=== PATIENT | female | born 1995 | race Caucasian/White ===

== ENCOUNTER → 2023-05-23 16:05 | Outpatient (CLI) | payer OTHER, MEDICAID, SELFPAY ==
[2023-05-23 18:05] LABS: HCG Quantitative /Beta subunit 34.2 mIU/mL
== END ==
PROVIDERS: PCP Family Medicine; Referring Provider Obstetrics & Gynecology; Visit Provider Obstetrics & Gynecology
DX: N91.2 Amenorrhea, unspecified (principal)
CPT/HCPCS: 36415; 84702

== ENCOUNTER → 2023-05-25 07:31 | Outpatient (CLI) | payer OTHER, MEDICAID, SELFPAY ==
[2023-05-25 08:44] LABS: HCG Quantitative /Beta subunit 90.3 mIU/mL
== END ==
PROVIDERS: PCP Family Medicine; Referring Provider Obstetrics & Gynecology; Visit Provider Obstetrics & Gynecology
DX: N91.2 Amenorrhea, unspecified (principal)
CPT/HCPCS: 36415; 84702

== ENCOUNTER → 2023-06-07 12:58 | Outpatient (CLI) | payer OTHER, MEDICAID, SELFPAY ==
[2023-06-07 14:53] LABS: HCG Quantitative /Beta subunit 22081 mIU/mL
== END ==
PROVIDERS: PCP Family Medicine; Referring Provider Obstetrics & Gynecology; Visit Provider Obstetrics & Gynecology
DX: N91.2 Amenorrhea, unspecified (principal)
CPT/HCPCS: 36415; 84702

== ENCOUNTER → 2023-06-20 15:03 | Outpatient (CLI) | payer OTHER, MEDICAID, SELFPAY ==
--- NOTE | 2023-06-20 | DI.US.S_ITS ---
PROCEDURE: US OB <= 14 WEEKS FETUS INDICATIONS: VIABILITY OUTSIDE/PRIOR DATING DATA: Last menstrual period (LMP): 04/30/2023. LMP-based estimated date of delivery (NITIN): 02/04/2024. First dating scan (date and location): 06/20/2023. Estimated date of delivery (NITIN) from first dating scan: 02/02/2024. The calculations are made using the working NITIN of 02/04/2024. TECHNIQUE: Real-time scanning was performed of the fetus and maternal pelvic organs, with image documentation. Endovaginal scanning was also performed to better visualize the fetus and maternal ovaries. COMPARISON: None. FINDINGS: Embryo: Calvary-rump length measures 1.4 cm, 7 weeks 4 days Heart rate: There is positive cardiac activity. No heart rate recorded period Maternal organs: Ovaries demonstrate probable right corpus luteum.. IMPRESSION: Living early 1st trimester intrauterine with crown-rump length and heartbeat measuring 7 weeks 4 days by crown-rump length. There is positive cardiac activity. The actual heart rate was not recorded. We strive to produce accurate, complete, and clear reports of imaging services. To assist us in improving patient care, this report was composed using standard report templates and voice recognition software. Therefore, it may contain abnormal punctuation, insertions and/or omissions. Occasional wrong-word or sound-alike substitutions may occur. Though we review the report and make efforts to correct it, we do recommend that the report be read carefully in proper context to recognize any text inaccuracies. Dictated by: Adilson Lantigua M.D. on 06/20/2023 at 17:12 Approved by: Adilson Lantigua M.D. on 06/20/2023 at 17:14
== END ==
PROVIDERS: PCP Family Medicine; Referring Provider Obstetrics & Gynecology; Visit Provider Obstetrics & Gynecology
DX: O46.91 Antepartum hemorrhage, unspecified, first trimester (principal); Z3A.01 Less than 8 weeks gestation of pregnancy
CPT/HCPCS: 76801; 76817

== ENCOUNTER → 2023-07-21 13:13 | Outpatient (CLI) | payer OTHER, MEDICAID, SELFPAY ==
[2023-07-21 18:17] LABS: Urine N gonorrhoeae NOT DETECTED
[2023-07-21 18:45] LABS: Urine Chlamydia NOT DETECTED
== END ==
PROVIDERS: PCP Family Medicine; Visit Provider Specialist
DX: Z34.81 Encounter for supervision of other normal pregnancy, first trimester (principal); Z3A.11 11 weeks gestation of pregnancy
CPT/HCPCS: 87086; 87491; 87591

== ENCOUNTER → 2023-07-24 08:52 | Outpatient (CLI) | payer OTHER, MEDICAID, SELFPAY ==
[2023-07-24 09:42] LABS: Specimen Label NATERA
[2023-07-24 10:26] LABS: Add Manual Diff / Slide Review NO; Basophils Absolute Auto 0 /uL (0-100); Basophils Percent Auto 0.2 % (0-2); Eosinophils Absolute Auto 100 /uL (0-450); Hematocrit 38.8 % (36-46); Hemoglobin 13.4 g/dL (12.0-16.0); Lymphocytes Absolute Auto 1700 /uL (1100-4500); Lymphocytes Percent Auto 26.1 % (25-40); Mean Corpuscular HGB Conc 34.4 % (30-36); Mean Corpuscular Hemoglobin 29.1 PG (26-34); Mean Corpuscular Volume 84.7 fL (80-100); Monocytes Absolute Auto 400 /uL (0-900); Monocytes Percent Auto 6.9 % (3-14); Neutrophils Absolute Auto 4200 /uL (1500-7000); Neutrophils Percent Auto 65.8 % (50-75); Platelet Count 199 X10^3/uL (150-400); Red Blood Cell Count 4.58 X10^6/uL (4.0-5.2); Red Cell Distribution Width 13.5 % (11.6-14.8); White Blood Cell Count 6.4 X10^3/uL (4.5-11.0)
[2023-07-24 16:37] LABS: Hepatitis B Surface Antigen NEGATIVE s/c (NEGATIVE); Rubella Antibody IgG 50.5 IU/mL (>15)
[2023-07-24 16:56] LABS: HIV 1 & 2 Ab/Ag 4th Gen Combo NEGATIVE (NEGATIVE); Hep C Virus Ab w/Reflex Quant NEGATIVE s/c (NEGATIVE)
[2023-07-25 06:08] LABS: RPR Screen Non Reactive (Non Reactive)
[2023-07-25 10:44] LABS: Varicella IgG Antibody 1629 index (Immune >165)
== END ==
PROVIDERS: PCP Family Medicine; Referring Provider Obstetrics & Gynecology; Visit Provider Obstetrics & Gynecology
DX: Z34.81 Encounter for supervision of other normal pregnancy, first trimester (principal)
CPT/HCPCS: 36415; 80055; 86787; 86803; 86850; 86900; 86901; 87389

== ENCOUNTER → 2023-08-22 08:13 | Outpatient (CLI) | payer OTHER, MEDICAID, SELFPAY ==
[2023-08-24 22:29] LABS: Gest Age on Col Date 16.3 weeks (.); Insulin Dep Diabetes No (.); OSBR Risk 1IN 10000 (.); Results Report (.); Test Results *Screen Negative* (.)
[2023-08-25 09:37] LABS: PDF SCANNED
== END ==
PROVIDERS: PCP Family Medicine; Referring Provider Obstetrics & Gynecology; Visit Provider Obstetrics & Gynecology
DX: Z34.82 Encounter for supervision of other normal pregnancy, second trimester (principal); Z3A.16 16 weeks gestation of pregnancy
CPT/HCPCS: 36415; 82105

== ENCOUNTER → 2023-09-01 | Outpatient (CLI) | payer OTHER, MEDICAID, SELFPAY | PROVIDERS: PCP Family Medicine; Referring Provider Family Medicine; Visit Provider Family Medicine | DX: Z23 Encounter for immunization (principal) | CPT/HCPCS: 90471; 90686 ==

== ENCOUNTER → 2023-09-26 14:59 | Outpatient (CLI) | payer OTHER, MEDICAID, SELFPAY ==
--- NOTE | 2023-09-26 15:00 | DI.US.S_ITS ---
PROCEDURE: US OB >= 14 WEEKS FETUS INDICATIONS: ANATOMY OUTSIDE/PRIOR DATING DATA: Last menstrual period (LMP): 04/30/2023. LMP-based estimated date of delivery (NITIN): 02/04/2024. First dating scan (date and location): 06/20/2023. Estimated date of delivery (NITIN) from first dating scan: 02/02/2024. The calculations are made using the working NITIN of 02/04/2024. TECHNIQUE: Real-time scanning was performed of the fetus, with image documentation and biometric measurements. Endovaginal scanning: Not performed COMPARISON: None. FINDINGS: General: A single living intrauterine gestation is present. Presentation: Variable. Placenta: Placental position is anterior and to the right , without previa. Amniotic fluid index: 13.3 cm, normal range is 5-24 cm. Single deepest vertical pocket is 4.2 cm. heart rate: 132 beats per minute. Maternal cervical canal: 4.1 cm long. Normal lower limit is 2.5 cm. biometrics: Biparietal diameter: 5.1 cm, 21 weeks 2 days Head circumference: 19.2 cm, 21 weeks 3 days Abdominal circumference: 17.3 cm, 22 weeks 2 days Femur length: 3.9 cm, 22 weeks 3 days Clinically estimated gestational age: 21 weeks 2 days Composite gestational age from present scan: 21 weeks 6 days Estimated weight and percentile: 482 g, 88th percentile Anatomic survey: Neuro: Ventricles are non-dilated at less than 10 mm. Cisterna magna is normal at 3-11 mm. Cerebellum is normal in size and morphology. Nuchal skin fold: Normal at less than 6 mm between 14-21 weeks gestational age. Face: Nose and lips, facial profile are normal. Spine: No evidence for spina bifida. Heart: 4-chambered heart is present, with normal ventricular outflow tracts. Diaphragm: Diaphragm is intact. Stomach: Left-sided stomach is present. Kidneys: No hydronephrosis. Normal is less than 5 mm in 2nd trimester, less than 7 mm in 3rd trimester. Cord: 3-vessel cord. Probable marginal cord insertion visualized in transverse plane only period cord is inserting 1.6 cm from the right placental edge period Bladder: Normal in size. Extremities: All 4 extremities identified. IMPRESSION: 1. Living 2nd trimester intrauterine with no sonographic evidence of complications. Current ultrasound age is concurrent with clinical age, 4 days greater than clinical age. 2. Probable marginal insertion of the cord on the placenta, approximately 1.6 cm from the right placental edge. 3. Otherwise unremarkable 2nd trimester anatomy scan. We strive to produce accurate, complete, and clear reports of imaging services. To assist us in improving patient care, this report was composed using standard report templates and voice recognition software. Therefore, it may contain abnormal punctuation, insertions and/or omissions. Occasional wrong-word or sound-alike substitutions may occur. Though we review the report and make efforts to correct it, we do recommend that the report be read carefully in proper context to recognize any text inaccuracies. Dictated by: Adilson Lantigua M.D. on 09/27/2023 at 12:54 Approved by: Adilson Lantigua M.D. on 09/27/2023 at 13:01
== END ==
PROVIDERS: PCP Family Medicine; Referring Provider Obstetrics & Gynecology; Visit Provider Obstetrics & Gynecology
DX: Z34.82 Encounter for supervision of other normal pregnancy, second trimester (principal); Z3A.20 20 weeks gestation of pregnancy
CPT/HCPCS: 76811

== ENCOUNTER → 2023-11-02 11:49 | Outpatient (CLI) | payer OTHER, MEDICAID, SELFPAY ==
[2023-11-02 13:47] LABS: Hematocrit 33.4 % (36-46); Hemoglobin 11.5 g/dL (12.0-16.0)
[2023-11-02 14:22] LABS: GTT (PREG) 1 Hour PP 50gm Dose 128 mg/dL (76-139)
== END ==
PROVIDERS: PCP Family Medicine; Referring Provider Obstetrics & Gynecology; Visit Provider Obstetrics & Gynecology
DX: Z34.82 Encounter for supervision of other normal pregnancy, second trimester (principal); Z3A.26 26 weeks gestation of pregnancy
CPT/HCPCS: 36415; 82950; 85014; 85018; 86850

== ENCOUNTER → 2024-01-10 08:43 | Outpatient (CLI) | payer OTHER, MEDICAID, SELFPAY ==
[2024-01-10 09:35] LABS: Creatinine Urine Random 91.4 mg/dL; Protein (Total) Urine Random 5 mg/dL (0-12); Protein Creatinine Ratio Urine 0.05 GRAM/24H
== END ==
PROVIDERS: PCP Family Medicine; Visit Provider Obstetrics & Gynecology
DX: O16.3 Unspecified maternal hypertension, third trimester (principal); Z3A.36 36 weeks gestation of pregnancy
CPT/HCPCS: 82570; 84156

== ENCOUNTER 2024-01-10 08:54 | Outpatient (CLI) | payer OTHER, MEDICAID, SELFPAY ==
[2024-01-10 09:33] LABS: Add Manual Diff / Slide Review NO; Basophils Absolute Auto 0 /uL (0-100); Basophils Percent Auto 0.3 % (0-2); Eosinophils Absolute Auto 100 /uL (0-450); Eosinophils Percent Auto 1.1 % (2-4); Hematocrit 37.8 % (36-46); Hemoglobin 12.6 g/dL (12.0-16.0); Lymphocytes Absolute Auto 2300 /uL (1100-4500); Lymphocytes Percent Auto 20.2 % (25-40); Mean Corpuscular HGB Conc 33.4 % (30-36); Mean Corpuscular Hemoglobin 26.8 PG (26-34); Mean Corpuscular Volume 80.3 fL (80-100); Monocytes Absolute Auto 900 /uL (0-900); Monocytes Percent Auto 7.7 % (3-14); Neutrophils Absolute Auto 7900 /uL (1500-7000); Neutrophils Percent Auto 70.7 % (50-75); Platelet Count 219 X10^3/uL (150-400); Red Cell Distribution Width 13.7 % (11.6-14.8); White Blood Cell Count 11.2 X10^3/uL (4.5-11.0)
[2024-01-10 09:40] LABS: Aspartate Aminotransferase 24 IU/L (14-36); BUN Creatinine Ratio 14.3 (6-22); Blood Urea Nitrogen 7 mg/dL (7-17); Estimated Glomerular Filt Rate > 60 mL/min (>60); Uric Acid 5.2 mg/dL (2.5-6.2)
== END 2024-01-10 10:03 | disposition home or self-care (01) ==
LOC: LABOR 09:40 → OB 01-16 09:45
PROVIDERS: PCP Family Medicine; Referring Provider Obstetrics & Gynecology; Visit Provider Obstetrics & Gynecology
DX: O13.3 Gestational [pregnancy-induced] hypertension without significant proteinuria, third trimester (principal); Z3A.36 36 weeks gestation of pregnancy; O16.3 Unspecified maternal hypertension, third trimester
CPT/HCPCS: 59025; 82570; 84156; 84450; 84550; 85025; G0378; G0379

== ENCOUNTER → 2024-01-18 08:17 | Outpatient (CLI) | payer OTHER, MEDICAID, SELFPAY ==
[2024-01-19 10:13] LABS: Strep Grp B PCR NEG for Grp B Strep
== END ==
PROVIDERS: PCP Family Medicine; Visit Provider Obstetrics & Gynecology
DX: Z34.83 Encounter for supervision of other normal pregnancy, third trimester (principal); Z3A.36 36 weeks gestation of pregnancy
CPT/HCPCS: 87653

== ENCOUNTER 2024-01-18 12:55 | Outpatient (CLI) | payer OTHER, MEDICAID, SELFPAY ==
[2024-01-18 13:31] LABS: Add Manual Diff / Slide Review NO; Basophils Absolute Auto 100 /uL (0-100); Basophils Percent Auto 0.7 % (0-2); Eosinophils Absolute Auto 200 /uL (0-450); Eosinophils Percent Auto 1.9 % (2-4); Hemoglobin 12.7 g/dL (12.0-16.0); Lymphocytes Absolute Auto 2000 /uL (1100-4500); Lymphocytes Percent Auto 19.1 % (25-40); Mean Corpuscular HGB Conc 34.5 % (30-36); Mean Corpuscular Hemoglobin 28.1 PG (26-34); Mean Corpuscular Volume 81.5 fL (80-100); Monocytes Absolute Auto 900 /uL (0-900); Neutrophils Absolute Auto 7400 /uL (1500-7000); Neutrophils Percent Auto 70.3 % (50-75); Platelet Count 201 X10^3/uL (150-400); Red Blood Cell Count 4.54 X10^6/uL (4.0-5.2); Red Cell Distribution Width 14.4 % (11.6-14.8); White Blood Cell Count 10.6 X10^3/uL (4.5-11.0)
[2024-01-18 13:48] LABS: Aspartate Aminotransferase 29 IU/L (14-36); BUN Creatinine Ratio 15.3 (6-22); Blood Urea Nitrogen 9 mg/dL (7-17); Estimated Glomerular Filt Rate > 60 mL/min (>60); Uric Acid 5.5 mg/dL (2.5-6.2)
[2024-01-18 17:36] LABS: Creatinine Urine Random 36.6 mg/dL; Protein (Total) Urine Random 11 mg/dL (0-12)
== END 2024-01-18 14:22 | disposition home or self-care (01) ==
LOC: LABOR 13:09 → OB 01-19 12:05
PROVIDERS: PCP Family Medicine; Referring Provider Obstetrics & Gynecology; Visit Provider Obstetrics & Gynecology
DX: O13.3 Gestational [pregnancy-induced] hypertension without significant proteinuria, third trimester (principal); Z3A.37 37 weeks gestation of pregnancy; Z34.83 Encounter for supervision of other normal pregnancy, third trimester; Z3A.36 36 weeks gestation of pregnancy
CPT/HCPCS: 59025; 82570; 84156; 84450; 84550; 85025; 87653; G0378; G0379

== ENCOUNTER 2024-01-21 21:28 | Outpatient (CLI) | payer OTHER, MEDICAID, SELFPAY | END 2024-01-21 22:08 | disposition home or self-care (01) | LOC: LABOR 21:35 → OB 01-22 08:08 | PROVIDERS: PCP Family Medicine; Referring Provider Obstetrics & Gynecology; Visit Provider Obstetrics & Gynecology | DX: O26.893 Other specified pregnancy related conditions, third trimester (principal); R10.2 Pelvic and perineal pain; Z3A.38 38 weeks gestation of pregnancy | CPT/HCPCS: 59025; G0378; G0379 ==

== ENCOUNTER 2024-01-23 19:23 | Inpatient (IN) | payer OTHER, MEDICAID, SELFPAY ==
[2024-01-23 20:32] LABS: Add Manual Diff / Slide Review NO; Basophils Absolute Auto 0 /uL (0-100); Basophils Percent Auto 0.3 % (0-2); Eosinophils Absolute Auto 300 /uL (0-450); Eosinophils Percent Auto 2.1 % (2-4); Hematocrit 36.7 % (36-46); Hemoglobin 12.4 g/dL (12.0-16.0); Lymphocytes Absolute Auto 2800 /uL (1100-4500); Lymphocytes Percent Auto 23.2 % (25-40); Mean Corpuscular HGB Conc 33.8 % (30-36); Mean Corpuscular Hemoglobin 27.6 PG (26-34); Mean Corpuscular Volume 81.6 fL (80-100); Monocytes Absolute Auto 1000 /uL (0-900); Monocytes Percent Auto 8.4 % (3-14); Neutrophils Absolute Auto 8000 /uL (1500-7000); Platelet Count 202 X10^3/uL (150-400); Red Cell Distribution Width 14.5 % (11.6-14.8); White Blood Cell Count 12.2 X10^3/uL (4.5-11.0)
[2024-01-23] MEDS: miSOPROStoL 25 MCG TABLET 50 MCG PO (20:41)
[2024-01-23 20:44] LABS: Aspartate Aminotransferase 26 IU/L (14-36); BUN Creatinine Ratio 14.8 (6-22); Blood Urea Nitrogen 8 mg/dL (7-17); Estimated Glomerular Filt Rate > 60 mL/min (>60); Uric Acid 5.6 mg/dL (2.5-6.2)
[2024-01-24] MEDS: miSOPROStoL 25 MCG TABLET 50 MCG PO ×2 (00:33→04:51)
--- NOTE | 2024-01-24 05:52 | PM.OBHP.IH.1 ---
OB HPI Date/Time Date of admission: 01/23/24 Date Patient Seen: 01/24/24 Time Patient Seen: 08:00 History of Present Condition Chief complaint: observation of labor NITIN Calculator Estimated Delivery Date Method Current WG Current Estimate 02/04/24 LMP (Certain) 38w 3d Other Estimates 02/01/24 Ultrasound #2 38w 6d : 5 Para: 2 care: good care, initiated at week # (11), number of visits (8) and pounds weight gain (33) Dating criteria OB: LMP confirmed by 1st trimester US Ultrasounds: normal 1st trimester US and normal mid trimester US Obstetrical complications: gestational hypertension Medical complications OB: none Indications Indication for induction OB: gestational HTN/pre-eclampsia Preadmission Labs Last OB Lab Results: Blood Type O Negative 01/23/24 20:00 Antibody Screen Positive 01/23/24 20:00 Hematocrit 36.7 % (36-46) 01/23/24 20:00 Hemoglobin 12.4 g/dL (12.0-16.0) 01/23/24 20:00 Hepatitis B Surface Antigen Negative s/c (NEGATIVE) 07/24/23 09:06 Hepatitis C Antibody Negative s/c (NEGATIVE) 07/24/23 09:06 Rubella Antibody 50.5 IU/mL (>15) 07/24/23 09:06 Varicella-Zoster IgG Antibody 1629 index (Immune >165) 07/24/23 09:06 Glucose 1 Hour 128 mg/dL (76-139) 11/02/23 11:51 Group B Streptococcus (PCR) Neg for grp b strep 01/18/24 08:17 -: Chlamydia screen: negative, Gonorrhea screen: negative and Urine: negative -: PAP smear: Normal (09/20) Genetic Screens: Cell-free DNA: Normal (normal female) and Alpha-fetoprotein: Normal External Labs -: Urine: negative Prior (ies) Past Pregnancies Del. Date GA/Weeks Labor Lgth Wt Sex Route Outcome Anesthesia Place Delv Breastfeed Preg Comp Name 09/14/14 41 26 8 lb Male vaginal live - full term [facility] [place] attempted hemorrhage Kayla 10/30/16 41 28 8 lb 8 oz Male vaginal live - full term [facility] [place] Attempted none [place] 02/27/21 6 elective 02/11/23 9 spontaneous Delivery Date: 02/27/21 Last Updated by: Екатерина Garza RN D&C, no complications Delivery Date: 02/11/23 Last Updated by: Екатерина Garza RN missed AB, needed D&C, no further complications Evaluation Evaluation Baseline heart rate: 135 Variability: Moderate (11-25) monitor accelerations: Present Monitor Decelerations: Absent Contraction Frequency (minutes): 5 Uterine Contraction Intensity: Mild Status: Category l Dilation (cm): 3 Effacement (%): 80 Dilation: 3-4 cm Effacement: >/=80% station: -1 Position of cervix: mid Consistency: soft Allison score: 10 PFSH Medical History (Updated 01/10/24 @ 08:52 by Dawna Carrillo MD) Allergies Fracture hemorrhage Depression (~2009) Anxiety (~2009) Asthma Surgical History (Updated 07/06/23 @ 20:31 by Carissa Cook) Anesthesia H/O dilation and curettage (~02/2023) Family History (Updated 07/06/23 @ 20:33 by Carissa Cook) Grandmother Diabetes mellitus Hypertension Hyperlipidemia Mother Hypothyroidism Mental health problem Brother Mental health problem Grandfather History of kidney cancer Hypertension Grandfather Lung cancer Social History marital status: unmarried,living together number of children: 2 household members: significant other and children lives independently: Yes caregiver/support person: Yes housing: apartment pets and animals: Yes (dog, cat) 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: employed (works in [employer] office) current occupational exposures/hazards: Yes special lisa needs: No travel history: over 6 months ago seatbelt use: always helmet use: Yes water heater temp set < 120 deg: Yes working smoke detector in home: Yes fire extinguisher in home: Yes carbon monox detector in home: Yes firearms in home: Yes firearms unloaded and locked: Yes do you feel safe at home: Yes Smoking Status: Former smoker Tobacco: How many years used: 5 second hand exposure: Yes (s/o smokes MJ and vapes outside) alcohol intake: former (occasionally when not ) substance use type: does not use during the past year weight has: remained stable well-balanced diet: daily or most days daily servings fruits/ve or more times/day caffeine: Yes (AM coffee) Type(s) of exercise: walking frequency: daily Meds Home Medications and Allergies Home Medications Medication Instructions Recorded Confirmed Type breast pump #1 ea 09/07/23 01/18/24 Rx albuterol sulfate 90 mcg/actuation 2 puff inhalation Q4-6H PRN 10/19/23 01/18/24 Rx aerosol inhaler shortness of breath or wheezing #8.5 grams vit no.95-ferrous 1 tab PO DAILY #90 tabs 10/19/23 01/24/24 Rx fumarate 28 mg-folic acid 800 mcg tablet ( Multivitamins) pantoprazole 40 mg tablet,delayed 40 mg PO DAILY #30 tabs 10/27/23 01/18/24 Rx release (Protonix) albuterol sulfate 90 mcg/actuation 2 puff inhalation Q4-6H PRN 11/13/23 01/24/24 Rx aerosol inhaler shortness of breath or wheezing #6.7 grams fluticasone propionate 110 1 puff inhalation DAILY #12 grams 11/13/23 01/18/24 Rx mcg/actuation HFA aerosol inhaler inhalational spacing device #1 ea 11/13/23 01/18/24 Rx (Aerochamber MV spacer) albuterol sulfate 90 mcg/actuation inhalation 01/24/24 History aerosol inhaler amoxicillin 500 mg capsule mg PO 01/24/24 History Allergies Allergy/AdvReac Type Severity Reaction Status Date / Time No Known Drug Allergies Allergy Unverified 01/10/24 08:33 OB Exam Narrative Exam Narrative: Generally: Patient is sitting up in the bed, no acute distress Lungs: Clear to auscultation bilaterally Cardiovascular: Regular rate and rhythm Abdomen: Gravid Fundal height: 39 cm Estimated weight: 7-1/2-8 lb Extremities: 1+ edema, 1+ DTRs, no clonus Objective Labs 01/23/24 20:00 01/23/24 20:25 Labs: Laboratory Results - last 24 hr 01/23/24 01/23/24 20:00 20:25 WBC 12.2 H RBC 4.50 Hgb 12.4 Hct 36.7 MCV 81.6 MCH 27.6 MCHC 33.8 RDW 14.5 Plt Count 202 Neut % (Auto) 66.0 Lymph % (Auto) 23.2 L Hale % (Auto) 8.4 Eos % (Auto) 2.1 Baso % (Auto) 0.3 Neut # (Auto) 8000 H Lymph # (Auto) 2800 Hale # (Auto) 1000 H Eos # (Auto) 300 Baso # (Auto) 0 BUN 8 Creatinine 0.54 Estimated GFR > 60 BUN/Creatinine Ratio 14.8 Uric Acid 5.6 AST 26 Blood Type O Negative Antibody Screen Positive Antibody Identification Anti-D Assessment and Plan Assessment and Plan Assessment and Plan narrative: Assessment: 28-year-old 5 para 2 with gestational hypertension status post 3 doses of misoprostol orally Favorable cervix Plan: Begin Pitocin Artificial rupture membranes when able Epidural as necessary Expected management to spontaneous vaginal delivery Time Spent with Patient Total time spent with greater than 50% in coordination of care (as documented) at patient's floor/unit and/or counseling patient:: 15-24 minutes
[2024-01-24] MEDS: OXYTOCIN PREMIX 30 UNIT/500 ML PLAST..BAG IV (09:45)
[2024-01-24] MEDS: LACTATED RINGERS 1,000 ML 100 ML IV (09:45)
--- NOTE | 2024-01-24 13:17 | PM.AN.REGBLK ---
[facility] <Jerica Christy CRNA - Last Filed: 01/24/24 13:19> Pre-procedure Procedure: Continuous Lumbar Epidural for L&D PMH/ROS narrative: active labor epidural x 2 PIH PSH/Anesthesia history narrative: epidural x 2 ASA Class: II Labs: Hct 36.7 % (36-46) 01/23/24 20:00 Plt Count 202 X10^3/uL (150-400) 01/23/24 20:00 Medications: Current Medications Generic Name Dose Route Start Last Admin Trade Name Freq PRN Reason Stop Dose Admin Calcium Carbonate 1,000 mg 01/23/24 20:05 Calcium Carbonate 500 Mg Tab PO Q4HR PRN Dyspepsia Carboprost Tromethamine 250 mcg 01/23/24 20:05 Carboprost 250 Mcg/Ml Ampul IM Q90M PRN Bleeding Fentanyl 50 mcg 01/23/24 20:05 Fentanyl 100 Mcg/2 Ml Inj IV Q1H PRN Pain, Moderate (4-6) Oxytocin/Lactated Ringer's 30 unit in 500 mls @ 2 mls/hr 01/23/24 20:15 01/24/24 09:45 Oxytocin Premix IV 2 milliunit/min TITRATE KIM 2 mls/hr Administration Protocol 2 MILLIUNIT/MIN Lactated Ringer's 1,000 mls @ 100 mls/hr 01/23/24 20:15 01/24/24 09:45 Lactated Ringers IV 100 mls/hr CONT KIM Administration Tranexamic Acid 1,000 mg/ 100 mls @ 200 mls/hr 01/23/24 20:05 Sodium Chloride IV NOW PRN Bleeding Oxytocin/Lactated Ringer's 30 unit in 500 mls @ 200 mls/hr 01/23/24 20:05 Oxytocin Premix IV CONT PRN Bleeding Protocol Lidocaine HCl 20 ml 01/23/24 20:05 Lidocaine 1% 20 Ml INJ INTRA-OP PRN Post Delivery Misoprostol 50 mcg 01/23/24 20:15 Misoprostol 25 Mcg Tablet VAG Q4H KIM Misoprostol 400 mcg 01/23/24 20:05 Misoprostol 200 Mcg Tablet SL NOW PRN Bleeding Misoprostol 800 mcg 01/23/24 20:05 Misoprostol 200 Mcg Tablet SC NOW PRN Bleeding Misoprostol 50 mcg 01/23/24 21:00 01/24/24 04:51 Misoprostol 25 Mcg Tablet PO 50 mcg QID KIM Administration Naloxone HCl 0.2 mg 01/23/24 20:05 Naloxone 0.4 Mg/Ml Vial IV Q2MIN PRN Opiate Reversal Ondansetron HCl 4 mg 01/23/24 20:05 Ondansetron 4 Mg/2 Ml Inj IV Q4HR PRN Nausea And Vomiting Oxytocin 10 unit 01/23/24 20:05 Oxytocin 10 Unit/Ml Vial IM NOW PRN Bleeding Allergies: Allergies Allergy/AdvReac Type Severity Reaction Status Date / Time No Known Drug Allergies Allergy Unverified 01/10/24 08:33 Procedure Insertion date: 01/24/24 Insertion time: 12:50 Prep/Local: betadine x3 and 1% lidocaine Interspace: l3 l4 Patient position: sitting Needle: 17 gauge Tuohy Loss of resistance with: saline VILMA at (cm): 6 Catheter in SPACE (cm): 14 Sensory level: t8 Insertion: No CSF, No Blood, No Paresthesia with insertion, No Paresthesia with injection and No Test dose reaction Initial Medications TEST DOSE time: 12:52 BOLUS DOSE time: 12:52 BOLUS DOSE (mL): 5 BOLUS DOSE med: 0.125% bupivacaine with fentanyl 10 mcg/mL Infusion INFUSION: 0.125% bupivacaine and with fentanyl 2 mcg/mL Post-procedure Anesthesia date START: 01/24/24 Anesthesia time START: 12:45 <Olivier Cortes MD - Last Filed: 01/24/24 19:52> Infusion Subsequent interventions: Patient c/o severe pain, catheter assessed, appears to have been dislodged at least 3cm, bolus 3ml 0.5 Bupivacaine + 3ml 2% Lidocaine, no significant relief. Catheter removed at 1855 and a new epidural inserted. Post-procedure Anesthesia date END: 01/24/24 Anesthesia time END: 18:55 Post-procedure Anesthesia Assessment: Yes CV function: HR/BP stable, Yes Resp function: RR/sat/airway adequate, Yes Post-op hydration adequate, Yes Pain control adequate, Yes Nausea & vomiting absent, Yes Temperature > 36 C and Yes Mental status appropriate
--- NOTE | 2024-01-24 13:33 | PM.OBPNLAB ---
Date/Time Date Patient Seen: 01/24/24 Time Patient Seen: 13:33 Pain Control Pain control: epidural Pelvic Exam Dilation (cm): 5 Effacement (%): 85 station: -1 Amniotic membrane status: Intact Contractions Contractions on admission: none Monitor mode: External Pitocin rate (mU/min): 12 Contraction frequency (min): 3 Contraction duration (min): 1 Contraction pattern: Regular Contraction intensity: Strong/Firm Status status: Category l Heart Rate Baseline: 135 Monitor Accelerations: Present Monitor Decelerations: Absent Monitor Variability: Moderate Assessment and Plan Assessment: active labor Plan: continuous present management Comments: AROM with MSF Expectant management to Peds notified
[2024-01-24] MEDS: LACTATED RINGERS 1,000 ML 1000 ML IV (16:46)
[2024-01-24] MEDS: diphenhydrAMINE 50 MG/ML VIAL 25 MG IV ×2 (16:46→17:26)
--- NOTE | 2024-01-24 17:41 | PM.OBPNLAB ---
Date/Time Date Patient Seen: 01/24/24 Time Patient Seen: 17:42 Pain Control Pain control: epidural (Starting to feel the contractions) Pelvic Exam Dilation (cm): 5 Effacement (%): 100 station: -1 Amniotic membrane status: Ruptured (MSF) Contractions Contractions on admission: none Monitor mode: External Pitocin rate (mU/min): 18 Contraction frequency (min): 3 Contraction pattern: Regular Contraction intensity: Strong/Firm Status status: Category l Heart Rate Baseline: 140 Monitor Accelerations: Present Monitor Decelerations: Absent Monitor Variability: Moderate Assessment and Plan Assessment: active labor and induction ongoing Comments: Anesthesia to come and give an epidural bolus Side to side and high Fowlers
--- NOTE | 2024-01-24 19:40 | PM.AN.REGBLK ---
[facility] Pre-procedure Procedure: Continuous Lumbar Epidural for L&D Attending OB provider: Dawna Carrillo PMH/ROS narrative: 28y with PMH significant for Asthma. Hx: No personal or family history of anesthesia problems. PSH/Anesthesia history narrative: Labor epidural ASA Class: II Labs: Hct 36.7 % (36-46) 01/23/24 20:00 Plt Count 202 X10^3/uL (150-400) 01/23/24 20:00 Medications: Current Medications Generic Name Dose Route Start Last Admin Trade Name Freq PRN Reason Stop Dose Admin Calcium Carbonate 1,000 mg 01/23/24 20:05 Calcium Carbonate 500 Mg Tab PO Q4HR PRN Dyspepsia Carboprost Tromethamine 250 mcg 01/23/24 20:05 Carboprost 250 Mcg/Ml Ampul IM Q90M PRN Bleeding Diphenhydramine HCl 25 mg 01/24/24 13:27 01/24/24 17:26 Diphenhydramine 50 Mg/Ml Vial IV 25 mg Q10M PRN Administration Pruritis Diphenhydramine HCl 25 mg 01/24/24 19:38 Diphenhydramine 50 Mg/Ml Vial IV Q10M PRN Pruritis Ephedrine Sulfate 5 mg 01/24/24 19:38 Ephedrine 50 Mg/Ml Vial IV Q5M PRN Blood pressure decrease more than 20% of baseline. Fentanyl 50 mcg 01/23/24 20:05 Fentanyl 100 Mcg/2 Ml Inj IV Q1H PRN Pain, Moderate (4-6) Oxytocin/Lactated Ringer's 30 unit in 500 mls @ 2 mls/hr 01/23/24 20:15 01/24/24 09:45 Oxytocin Premix IV 2 milliunit/min TITRATE KIM 2 mls/hr Administration Protocol 2 MILLIUNIT/MIN Lactated Ringer's 1,000 mls @ 100 mls/hr 01/23/24 20:15 01/24/24 09:45 Lactated Ringers IV 100 mls/hr CONT KIM Administration Tranexamic Acid 1,000 mg/ 100 mls @ 200 mls/hr 01/23/24 20:05 Sodium Chloride IV NOW PRN Bleeding Oxytocin/Lactated Ringer's 30 unit in 500 mls @ 200 mls/hr 01/23/24 20:05 Oxytocin Premix IV CONT PRN Bleeding Protocol FENT 2MCG/ML BUPIV 0.125% EPI 200 mcg in 100 mls @ 10 mls/hr 01/24/24 13:30 Fentanyl/Bupiv/Ns 2mcg/Ml - 0.125% EPIDURAL CONT KIM Lidocaine HCl 20 ml 01/23/24 20:05 Lidocaine 1% 20 Ml INJ INTRA-OP PRN Post Delivery Misoprostol 50 mcg 01/23/24 20:15 Misoprostol 25 Mcg Tablet VAG Q4H KIM Misoprostol 400 mcg 01/23/24 20:05 Misoprostol 200 Mcg Tablet SL NOW PRN Bleeding Misoprostol 800 mcg 01/23/24 20:05 Misoprostol 200 Mcg Tablet AK NOW PRN Bleeding Misoprostol 50 mcg 01/23/24 21:00 01/24/24 04:51 Misoprostol 25 Mcg Tablet PO 50 mcg QID KIM Administration Nalbuphine HCl 2.5 mg 01/24/24 13:27 Nalbuphine 20 Mg/Ml Ampul IV Q10M PRN Pruritis Nalbuphine HCl 2.5 mg 01/24/24 19:38 Nalbuphine 20 Mg/Ml Ampul IV Q10M PRN Pruritis Naloxone HCl 0.2 mg 01/23/24 20:05 Naloxone 0.4 Mg/Ml Vial IV Q2MIN PRN Opiate Reversal Ondansetron HCl 4 mg 01/23/24 20:05 Ondansetron 4 Mg/2 Ml Inj IV Q4HR PRN Nausea And Vomiting Oxytocin 10 unit 01/23/24 20:05 Oxytocin 10 Unit/Ml Vial IM NOW PRN Bleeding Allergies: Allergies Allergy/AdvReac Type Severity Reaction Status Date / Time No Known Drug Allergies Allergy Unverified 01/10/24 08:33 Procedure Insertion date: 01/24/24 Insertion time: 19:12 Prep/Local: betadine x3 and 1% lidocaine Interspace: L3-L4 Patient position: sitting Needle: 18 gauge Noris Loss of resistance with: saline VILMA at (cm): 8 Catheter placed at SKIN (cm): 15 Catheter in SPACE (cm): 7 Insertion: No CSF, No Blood, No Paresthesia with insertion, No Paresthesia with injection and No Test dose reaction Initial Medications TEST DOSE time: 19:14 TEST DOSE: 1.5% lidocaine with epinephrine 1:200k (mL): 3 BOLUS DOSE time: 19:15 BOLUS DOSE (mL): 7 BOLUS DOSE med: other (2% Lidocaine) Infusion INFUSION: 0.125% bupivacaine and with fentanyl 2 mcg/mL Initial rate (mL/hr): 8 Subsequent interventions: Delivery time: 2204 Post-procedure Anesthesia date START: 01/24/24 Anesthesia time START: 18:55 Anesthesia date END: 01/24/24 Anesthesia time END: 22:30 Post-procedure Anesthesia Assessment: Yes CV function: HR/BP stable, Yes Resp function: RR/sat/airway adequate, Yes Post-op hydration adequate, Yes Pain control adequate, Yes Nausea & vomiting absent, Yes Temperature > 36 C and Yes Mental status appropriate
--- NOTE | 2024-01-24 20:43 | PM.OBPRVD ---
Events: Induced HTN and Labor Induction Labor & Delivery Delivery date: 01/24/24 Intrapartal Events: None Cervical ripening method: per misoprostal protocol Induction method: per pitocin protocol Delivery augmentation: rupture of membranes Delivery monitor: external FHT and external uterine Route of delivery: Episiotomy description: None L&D Laceration Description: Perineal - 1st Degree Delivery repair: chromic Estimated blood loss (mL): 300 Anesthesia Type: Epidural (x 2) Complications: Moderate shoulder dystocia, relieved with Deirdre and suprapubic pressure Narrative: Patient complete and pushed for 14 minutes. At 8:05 p.m., a live female delivered spontaneously in the NOÉ presentation, over an intact perineum. There was a moderate dystocia encountered that was relieved with мария Osborne and suprapubic pressure. No nuchal cord. The remainder of the body delivered and was placed on mom's abdomen. Pitocin was given in the IV fluids. After the cord stopped pulsing, the cord was double clamped and cut. Cord bloods were obtained. The placenta delivered intact with a three-vessel cord at 8:20 p.m.. The fundus was massaged to firm. There was a first-degree perineal laceration which was repaired with 2-0 chromic. Hemostasis was achieved. Apgars 6 at 1 minute and 9 at 5 minutes. Epidural analgesia. . Mom and infant stable to recovery. [place] Baby 1: Infant gender: Female Presentation: vertex Position: Left Occiput Anterior Placenta delivery description: Spontaneous Cord Vessel Description: 3 Vessels score (1 min): 6 score (5 min): 9 weight: 9 lb 8 oz Plan for aftercare: Routine care
[2024-01-24] MEDS: ACETAMINOPHEN 325 MG TABLET 650 MG PO (21:22)
[2024-01-24] MEDS: KETOROLAC 30 MG/ML VIAL IV (21:22)
[2024-01-25] MEDS: ACETAMINOPHEN 325 MG TABLET 650 MG PO ×2 (03:44→10:37)
[2024-01-25] MEDS: KETOROLAC 30 MG/ML VIAL IV ×2 (03:44→09:40)
[2024-01-25 05:23] LABS: Hematocrit 34.8 % (36-46); Hemoglobin 11.7 g/dL (12.0-16.0)
[2024-01-25] MEDS: OXYCODONE IR 5 MG TABLET PO ×3 (05:39→15:34)
[2024-01-25] MEDS: DOCUSATE 100 MG CAPSULE PO (09:00)
[2024-01-25] MEDS: PRENATAL VIT,CALC/IRON/FOLIC 1 TABLET 1 TAB PO (09:00)
--- NOTE | 2024-01-25 09:49 | PM.OBPN.1 ---
Subjective - OB Subjective Patient comments: no complaints [place] baby status: doing well feeding status: exclusively breast feeding Date Patient Seen: 01/25/24 Time Patient Seen: 09:49 Exam Vital Signs (past 8 hours): Blood pressure 151/82, pulse of 63, temperature 97.8? Narrative Exam Narrative: Patient's abdomen is soft, nontender. Uterus is firm, at U, nontender. Extremities with trace edema and nontender. Mild lochia. Objective Labs 01/25/24 05:14 01/23/24 20:25 Labs: Laboratory Results - last 24 hr 01/25/24 05:14 Hgb 11.7 L Hct 34.8 L Assessment & Plan Plan day: 0 plan OB: routine care Time Spent With Patient Time: Total time spent is greater than 50% in coordination of care (as documented) at patient's floor/unit and/or counseling patient: Time with patient: less than 15 minutes
--- NOTE | 2024-01-25 15:15 | PM.OBDS.1 ---
Discharge Providers Provider Date of admission: 01/23/24 19:23 Discharge Date: 01/25/24 Primary care physician: Brea Chinchilla DO Consults: 01/23/24 20:05 Consult to Anesthesiology Urgent Comment: Consulting Provider: Anesthesiologist Reason for consultation: Epidural Has provider been notified: No 01/25/24 20:33 Consult to [employer] Routine Comment: Discharge provider: Amanda Gutierres MD Summary Hospital Course Date Patient Seen: 01/25/24 Time Patient Seen: 15:15 Diagnoses: Vaginal delivery, gestational hypertension Hospital Course: Patient is a 28-year-old 5 now para 3 who was admitted for induction for gestational hypertension. She received 3 doses of misoprostol followed by Pitocin and AROM induction. She received epidural catheter for pain control. She had a spontaneous vaginal delivery of a viable female infant weighing 9 lb 8 oz with a short shoulder dystocia resolved with Jacke Osborne for maneuver and suprapubic pressure. She had a first-degree perineal tear that was repaired. She is urinating and ambulating well. She feels that she needs pain medicine for pain control. She is breast-feeding without difficulty. Lochia is mild. Patient will receive RhoGAM for Rh-negative status with baby Rh positive. Peripartum Data Delivery Method: Natural Vaginal Laceration Description: Perineal - 1st Degree Procedures: Misoprostol, Pitocin induction of labor. Spontaneous vaginal delivery with repair of first-degree perineal tear. complications: none [place] 1: Gender: Female Disposition of : home Discharge Diagnosis (1) Vaginal delivery: Status: Acute Status at Discharge Cognitive/behavioral status at discharge: oriented Functional status at discharge: independent ambulation Overall status at discharge: patient is progressing back to baseline Time Spent with Patient Time attestation: Total time spent providing and/or coordinating discharge services: Time spent: Less than 30 minutes Specific discharge activities: Nothing in vagina for 6 weeks Objective Labs 01/25/24 05:14 01/23/24 20:25 Labs: Laboratory Results - last 24 hr 01/23/24 01/25/24 20:00 05:14 Hgb 11.7 L Hct 34.8 L Antibody Identification Anti-D Exam Vital Signs (past 8 hours): Blood pressure 123/73, pulse of 61, temperature 98.1? Narrative Exam Narrative: Abdomen is soft, nontender. Uterus is firm, at U, nontender. Extremities with trace edema and nontender. Mild lochia. Discharge Plan Discharge Plan Patient Disposition: Home Provider Discharge Comment: Call with fever, chills, or bleeding vaginally more than a pad in an hour Ibuprofen 600 mg every 6 hours as needed for cramping Tylenol 650 mg every 6 hours as needed Discharge orders & Medications Prescriptions: New oxycodone 5 mg Tablet 5 mg PO Q4HR PRN (Reason: Pain, Moderate (4-6)) Qty: 10 0RF Continued fluticasone propionate 110 mcg/actuation HFA aerosol inhaler 1 puff inhalation DAILY Qty: 12 0RF Rx Instructions: administer with spacer albuterol sulfate 90 mcg/actuation HFA aerosol inhaler 2 puff inhalation Q4-6H PRN (Reason: shortness of breath or wheezing) Qty: 6.7 0RF (DME) Aerochamber MV Spacer See Rx Instructions .ROUTE .MEDSUPPLY Qty: 1 0RF Rx Instructions: As directed (DME) breast pump Device See Rx Instructions .ROUTE .MEDSUPPLY Qty: 1 0RF Rx Instructions: As directed albuterol sulfate 90 mcg/actuation HFA aerosol inhaler 2 puff inhalation Q4-6H PRN (Reason: shortness of breath or wheezing) Qty: 8.5 2RF PNV cmb#[id number]-ferrous fumarate-FA [ Multivitamins] 28 mg iron- 800 mcg tablet 1 tab PO DAILY Qty: 90 3RF Rx Instructions: Brand as allowed by insurance albuterol sulfate 90 mcg/actuation HFA aerosol inhaler inhalation Discontinued pantoprazole [Protonix] 40 mg tablet,delayed release (DR/EC) 40 mg PO DAILY Qty: 30 3RF amoxicillin 500 mg capsule PO Follow up/Referrals: Dawna Carrillo MD [Physician] - 03/08/24 3:00 pm (Please make patient's [address] Carrillo) Diet/Activity/Treatments Diet: Regular Activity: Nothing in the vagina for 6 weeks Skin/Wound/Dressing Care Report to your healthcare provider any signs of infection, such as:: chills, fever, increased pain and unusual drainage Visit Report/Discharge Packet Instructions: DI for Labor and Delivery, Vaginal , DI for Depression Stand Alone Forms: Discharge: Care, Patient Portal/API, Stroke Signs & Symptoms Discharge Data Primary Care Provider: Brea Chinchilla
[2024-01-25] MEDS: RHO(D) IMMUNE GLOBULIN 1,500 UNIT SYRINGE 1500 UNIT IM (15:33)
== END 2024-01-25 16:00 | disposition home or self-care (01) | DRG 806 ==
PROVIDERS: Admitting Provider Obstetrics & Gynecology; PCP Family Medicine; Referring Provider Obstetrics & Gynecology; Visit Provider Obstetrics & Gynecology
DX: O13.4 Gestational [pregnancy-induced] hypertension without significant proteinuria, complicating childbirth (principal); O36.0130 Maternal care for anti-D [Rh] antibodies, third trimester, not applicable or unspecified; Z37.0 Single live birth; O70.0 First degree perineal laceration during delivery; Z3A.38 38 weeks gestation of pregnancy; O26.893 Other specified pregnancy related conditions, third trimester; Z23 Encounter for immunization; R10.2 Pelvic and perineal pain
CPT/HCPCS: 36415; 59025; 59050; 59200; 59400; 84450; 84550; 85014; 85018; 85025; 86850; 86870; 86900; 86901; G0379; J1200; J1885; J2590; J2790